=== PATIENT | female | born 1985 | race American Indian/Alaskan Native ===

== ENCOUNTER 2017-10-04 07:11 | Emergency (ER) | payer SELFPAY ==
[2017-10-04 07:38] LABS: Basophils % (Auto) 0.2 % (0.0-1.8); Eosinophils % (Auto) 0.1 % (0.0-4.3); Hematocrit 37.9 % (30.3-42.9); Mean Corpuscular HGB Conc 34 % (30-34); Mean Corpuscular Hemoglobin 30 pg (28-32); Mean Corpuscular Volume 88 fl (79-97); Platelet Count 350 K/mm3 (140-440); Red Blood Count 4.31 M/mm3 (3.65-5.03); White Blood Count 9.1 K/mm3 (4.5-11.0)
[2017-10-04 07:53] LABS: Alanine Aminotransferase 16 units/L (7-56); Albumin 4.7 g/dL (3.9-5); Albumin/Globulin Ratio 1.4 %; Alkaline Phosphatase 43 units/L (35-129); BUN/Creatinine Ratio 21; Blood Urea Nitrogen 15 mg/dL (7-17); Calcium 9.2 mg/dL (8.4-10.2); Carbon Dioxide 25 mmol/L (22-30); Glucose 85 mg/dL (65-100); Lipase 34 units/L (13-60)
[2017-10-04 07:54] LABS: Anion Gap 18 mmol/L; Chloride 99.5 mmol/L (98-107); Potassium 3.7 mmol/L (3.6-5.0); Sodium 139 mmol/L (137-145)
--- NOTE | 2017-10-04 08:55 | Emergency Department Report ---
ED Abdominal Pain HPI - General Chief Complaint: Abdominal Pain Stated Complaint: ABDOMINAL PAIN, HEADACHE Time Seen by Provider: 10/04/17 08:53 Source: patient Mode of arrival: Ambulatory Limitations: No Limitations - History of Present Illness Initial Comments: Patient has a variety of chronic complaints including intermittent headache and intermittent lower abdominal pain. She's had headaches for years. They have been previously diagnosed as tension headaches. She states that she has had nausea and occasional lower abdominal cramping for one month. She has no family physician in this area as she recently moved here. Therefore, she decided to go to the emergency department for further evaluation. She does not report any acute active symptoms at this time. MD Complaint: abdominal pain Location: LLQ, RLQ (occasional lower cramping) Migration to: no migration Severity: mild Severity scale (0 -10): 0 Quality: cramping Consistency: intermittent Improves With: nothing Worsens With: nothing Associated Symptoms: nausea (states regular menses), other (enhancement headaches) - Related Data Home Medications Medication Instructions Recorded Confirmed Last Taken Aspirin/Acetaminophen/Caffeine 1 tab PO QDAY PRN 10/04/17 10/04/17 Unknown [Excedrin Migraine Caplet] Mucinex Fast-Max Day-Nite Cold 1 tab PO QDAY PRN 10/04/17 10/04/17 Unknown Previous Rx's Medication Instructions Recorded Last Taken Type Nitrofurantoin Monohyd/M-Cryst 100 mg PO BID #7 capsule 10/04/17 Unknown Rx [Macrobid 100 mg Capsule] Ondansetron [Zofran Odt] 4 mg PO Q8HR PRN #7 tab.rapdis 10/04/17 Unknown Rx traMADol [Ultram] 50 mg PO Q6HR PRN #7 tablet 10/04/17 Unknown Rx Allergies Allergy/AdvReac Type Severity Reaction Status Date / Time Penicillins Allergy Rash Verified 10/04/17 07:16 ED Review of Systems ROS: Stated complaint: ABDOMINAL PAIN, HEADACHE Other details as noted in HPI Constitutional: denies: chills, fever Eyes: denies: eye pain, eye discharge, vision change ENT: denies: ear pain, throat pain Respiratory: denies: cough, shortness of breath, wheezing Cardiovascular: denies: chest pain, palpitations Endocrine: no symptoms reported Gastrointestinal: nausea. denies: abdominal pain (not currently but occasional cramping), diarrhea Genitourinary: denies: urgency, dysuria, discharge Musculoskeletal: denies: back pain, joint swelling, arthralgia Skin: denies: rash, lesions Neurological: headache (not at this time but intermittently). denies: weakness , paresthesias Psychiatric: denies: anxiety, depression Hematological/Lymphatic: denies: easy bleeding, easy bruising ED Past Medical Hx - Past Medical History Previous Medical History?: Yes Additional medical history: tension RODRIGUEZ - Surgical History Past Surgical History?: Yes Additional Surgical History: D&C - Social History Smoking Status: Never Smoker Substance Use Type: Alcohol - Medications Home Medications: Home Medications Medication Instructions Recorded Confirmed Last Taken Type Aspirin/Acetaminophen/Caffeine 1 tab PO QDAY PRN 10/04/17 10/04/17 Unknown History [Excedrin Migraine Caplet] Mucinex Fast-Max Day-Nite Cold 1 tab PO QDAY PRN 10/04/17 10/04/17 Unknown History Nitrofurantoin Monohyd/M-Cryst 100 mg PO BID #7 capsule 10/04/17 Unknown Rx [Macrobid 100 mg Capsule] Ondansetron [Zofran Odt] 4 mg PO Q8HR PRN #7 tab.rapdis 10/04/17 Unknown Rx traMADol [Ultram] 50 mg PO Q6HR PRN #7 tablet 10/04/17 Unknown Rx ED Physical Exam - General Limitations: No Limitations General appearance: alert, in no apparent distress - Head Head exam: Present: atraumatic, normocephalic - Eye Eye exam: Present: normal appearance. Absent: scleral icterus - ENT ENT exam: Present: mucous membranes moist - Neck Neck exam: Present: normal inspection - Respiratory Respiratory exam: Present: normal lung sounds bilaterally. Absent: respiratory distress - Cardiovascular Cardiovascular Exam: Present: regular rate, normal rhythm. Absent: systolic murmur, diastolic murmur, rubs, gallop - GI/Abdominal GI/Abdominal exam: Present: soft, normal bowel sounds. Absent: distended, tenderness, guarding, rebound, rigid - Extremities Exam Extremities exam: Present: normal inspection - Back Exam Back exam: Present: normal inspection - Neurological Exam Neurological exam: Present: alert, oriented X3, CN II-XII intact. Absent: motor sensory deficit - Psychiatric Psychiatric exam: Present: normal affect, normal mood - Skin Skin exam: Present: warm, dry, intact, other (large keloid anterior sternal area ). Absent: rash ED Course Vital Signs 10/04/17 10/04/17 10/04/17 07:16 07:30 09:15 Temperature 98.4 F 98.5 F Pulse Rate 104 H 96 H 95 H Respiratory 18 14 14 Rate Blood Pressure 105/77 Blood Pressure 127/85 134/86 [Right] O2 Sat by Pulse 99 100 Oximetry ED Medical Decision Making - Lab Data Result diagrams: 10/04/17 07:22 10/04/17 07:22 Laboratory Results - last 24 hr 10/04/17 10/04/17 10/04/17 07:22 07:22 07:22 WBC 9.1 RBC 4.31 Hgb 13.0 Hct 37.9 MCV 88 MCH 30 MCHC 34 RDW 13.0 L Plt Count 350 Lymph % (Auto) 20.2 [place] % (Auto) 6.3 Eos % (Auto) 0.1 Baso % (Auto) 0.2 Lymph # 1.8 [place] # 0.6 Eos # 0.0 Baso # 0.0 Seg Neutrophils % 73.2 H Seg Neutrophils # 6.7 Sodium 139 Potassium 3.7 Chloride 99.5 Carbon Dioxide 25 Anion Gap 18 BUN 15 Creatinine 0.7 Estimated GFR > 60 BUN/Creatinine Ratio 21 Glucose 85 Calcium 9.2 Total Bilirubin 0.70 AST 24 ALT 16 Alkaline Phosphatase 43 Total Protein 8.0 Albumin 4.7 Albumin/Globulin Ratio 1.4 Lipase 34 HCG, Qual Negative Laboratory Results - last 24 hr 10/04/17 10/04/17 10/04/17 07:22 07:22 07:22 WBC 9.1 RBC 4.31 Hgb 13.0 Hct 37.9 MCV 88 MCH 30 MCHC 34 RDW 13.0 L Plt Count 350 Lymph % (Auto) 20.2 [place] % (Auto) 6.3 Eos % (Auto) 0.1 Baso % (Auto) 0.2 Lymph # 1.8 [place] # 0.6 Eos # 0.0 Baso # 0.0 Seg Neutrophils % 73.2 H Seg Neutrophils # 6.7 Sodium 139 Potassium 3.7 Chloride 99.5 Carbon Dioxide 25 Anion Gap 18 BUN 15 Creatinine 0.7 Estimated GFR > 60 BUN/Creatinine Ratio 21 Glucose 85 Calcium 9.2 Total Bilirubin 0.70 AST 24 ALT 16 Alkaline Phosphatase 43 Total Protein 8.0 Albumin 4.7 Albumin/Globulin Ratio 1.4 Lipase 34 HCG, Qual Negative Urine Color Urine Turbidity Urine pH Ur Specific [place] Urine Protein Urine Glucose (UA) Urine Ketones Urine Blood Urine Nitrite Urine Bilirubin Urine Urobilinogen Ur Leukocyte Esterase Urine WBC (Auto) Urine RBC (Auto) U Epithel Cells (Auto) Urine Mucus 10/04/17 10:26 WBC RBC Hgb Hct MCV MCH MCHC RDW Plt Count Lymph % (Auto) [place] % (Auto) Eos % (Auto) Baso % (Auto) Lymph # [place] # Eos # Baso # Seg Neutrophils % Seg Neutrophils # Sodium Potassium Chloride Carbon Dioxide Anion Gap BUN Creatinine Estimated GFR BUN/Creatinine Ratio Glucose Calcium Total Bilirubin AST ALT Alkaline Phosphatase Total Protein Albumin Albumin/Globulin Ratio Lipase HCG, Qual Urine Color Yellow Urine Turbidity Clear Urine pH 5.0 Ur Specific [place] 1.024 Urine Protein 30 mg/dl Urine Glucose (UA) Neg Urine Ketones 80 Urine Blood Neg Urine Nitrite Neg Urine Bilirubin Neg Urine Urobilinogen < 2.0 Ur Leukocyte Esterase Neg Urine WBC (Auto) 2.0 Urine RBC (Auto) 3.0 U Epithel Cells (Auto) < 1.0 Urine Mucus 3+ Critical care attestation.: If time is entered above; I have spent that time in minutes in the direct care of this critically ill patient, excluding procedure time. ED Disposition Clinical Impression: Nausea UTI (urinary tract infection) Qualifiers: Urinary tract infection type: site unspecified Hematuria presence: without hematuria Qualified Code(s): N39.0 - Urinary tract infection, site not specified Headache Qualifiers: Headache type: unspecified Headache chronicity pattern: chronic headache Intractability: not intractable Qualified Code(s): R51 - Headache Disposition: - TO HOME OR SELFCARE Is pt being admited?: No Does the pt Need Aspirin: No Condition: Stable Instructions: Abdominal Pain (ED), Acute Headache (ED), Urinary Tract Infection in Women (ED) Additional Instructions: Follow-up with her primary care provider. Rx as directed. Follow up on your urine culture by Sunday. Return any acute change or problems. Prescriptions: Nitrofurantoin Monohyd/M-Cryst [Macrobid 100 mg Capsule] 100 mg PO BID #7 capsule Ondansetron [Zofran Odt] 4 mg PO Q8HR PRN #7 tab.rapdis PRN Reason: Nausea traMADol [Ultram] 50 mg PO Q6HR PRN #7 tablet PRN Reason: Pain Referrals: PRIMARY CARE, [Primary Care Provider] - 3-5 Days [facility] [Provider Group] - 3-5 Days Time of Disposition: 10:52
[2017-10-04 10:33] VITALS: BP 134/86
[2017-10-04 10:40] LABS: Bilirubin,Urine NEG (Negative); Blood,Urine NEG (Negative); Ketones,Urine 80 mg/dL (Negative); Leukocyte Esterase,Urine NEG (Negative); Mucus,Urine 3+ /HPF; Nitrite,Urine NEG (Negative); Urobilinogen,Urine < 2.0 mg/dL (<2.0)
== END 2017-10-04 11:14 | disposition home or self-care (01) ==
LOC: ED 07:11
DX: N39.0 Urinary tract infection, site not specified (principal); R51 Headache; Z88.0 Allergy status to penicillin; Z79.82 Long term (current) use of aspirin
CPT/HCPCS: 36415; 80053; 81001; 83690; 84703; 85025; 87086; 99283

== ENCOUNTER 2019-02-01 07:54 | Emergency (ER) | payer SELFPAY ==
[2019-02-01 08:09] VITALS: BP 99/70
--- NOTE | 2019-02-01 09:46 | Emergency Department Report ---
- General Chief Complaint: Upper Respiratory Infection Stated Complaint: COUGH/COLD SYMPTOMS Time Seen by Provider: 02/01/19 09:34 Source: patient Mode of arrival: Ambulatory Limitations: No Limitations - History of Present Illness Initial Comments: 33-year-old female presents to the hospital and cold symptoms 2 weeks. Patient is not that the cough, runny nose, sore throat, and hoarseness. Using [id number] medicine without relief. She denies fever, sick contacts, recent travel, she did not receive a flu shot. She denies dizziness, lightheadedness, or shortness of breath. Pain to chest is mild to moderate and reported only with coughing. She does have a primary care doctor - Related Data Home Medications Medication Instructions Recorded Confirmed Last Taken Aspirin/Acetaminophen/Caffeine 1 tab PO QDAY PRN 10/04/17 10/04/17 Unknown [Excedrin Migraine Caplet] Mucinex Fast-Max Day-Nite Cold 1 tab PO QDAY PRN 10/04/17 10/04/17 Unknown Previous Rx's Medication Instructions Recorded Last Taken Type Nitrofurantoin Monohyd/M-Cryst 100 mg PO BID #7 capsule 10/04/17 Unknown Rx [Macrobid 100 mg Capsule] Ondansetron [Zofran Odt] 4 mg PO Q8HR PRN #7 tab.rapdis 10/04/17 Unknown Rx traMADol [Ultram] 50 mg PO Q6HR PRN #7 tablet 10/04/17 Unknown Rx Azithromycin [Zithromax Z-LUZ] 1 dose PO DAILY 5 Days tab 02/01/19 Unknown Rx Benzonatate [Tessalon Perles] 100 mg PO Q8HR PRN #30 capsule 02/01/19 Unknown Rx Allergies Allergy/AdvReac Type Severity Reaction Status Date / Time Penicillins Allergy Rash Verified 10/04/17 07:16 ED Review of Systems ROS: Stated complaint: COUGH/COLD SYMPTOMS Other details as noted in HPI Comment: All other systems reviewed and negative ED Past Medical Hx - Past Medical History Previous Medical History?: No Additional medical history: tension RODRIGUEZ - Surgical History Past Surgical History?: Yes Additional Surgical History: D&C - Social History Smoking Status: Never Smoker Substance Use Type: None - Medications Home Medications: Home Medications Medication Instructions Recorded Confirmed Last Taken Type Aspirin/Acetaminophen/Caffeine 1 tab PO QDAY PRN 10/04/17 10/04/17 Unknown History [Excedrin Migraine Caplet] Mucinex Fast-Max Day-Nite Cold 1 tab PO QDAY PRN 10/04/17 10/04/17 Unknown History Nitrofurantoin Monohyd/M-Cryst 100 mg PO BID #7 capsule 10/04/17 Unknown Rx [Macrobid 100 mg Capsule] Ondansetron [Zofran Odt] 4 mg PO Q8HR PRN #7 tab.rapdis 10/04/17 Unknown Rx traMADol [Ultram] 50 mg PO Q6HR PRN #7 tablet 10/04/17 Unknown Rx Azithromycin [Zithromax Z-LUZ] 1 dose PO DAILY 5 Days tab 02/01/19 Unknown Rx Benzonatate [Tessalon Perles] 100 mg PO Q8HR PRN #30 capsule 02/01/19 Unknown Rx ED Physical Exam - General Limitations: No Limitations - Other Other exam information: General: No limitations, patient is alert in no acute distress Head exam: Atraumatic, normocephalic Eyes exam: Mild right eye conjunctiva erythema without purulence draining, pupils equal reactive to light, extraocular movements intact ENT: Moist mucous membrane, normal oropharynx, no posterior pharyngeal exudates. Nontender cervical lymph nodes without significant lymphadenopathy Neck exam: Normal inspection, full range of motion, no meningismus nontender Respiratory exam: Clear to auscultation bilateral, no wheezes, rales, crackles Cardiovascular: Normal rate and rhythm without tachycardia on exam Abdomen: Soft, nondistended, and nontender, with normal bowel sounds, no rebound, or guarding Extremity: Full range of motion normal inspection no deformity Back: Normal Inspection, full range of motion, no tenderness Neurologic: Alert, oriented x3, cranial nerves intact, no motor or sensory deficit Psychiatric: normal affect, normal mood Skin: Warm, dry, intact ED Course Vital Signs 02/01/19 08:03 Temperature 98.5 F Pulse Rate 104 H Respiratory 18 Rate Blood Pressure 99/70 O2 Sat by Pulse 98 Oximetry ED Medical Decision Making - Medical Decision Making Since of this ongoing 2 weeks patient will be placed on a Z-Luz for respiratory/sinus infection. Continue OTC meds for symptoms. PMD follow-up - Differential Diagnosis viral syndrome, bronchitis, pneumonia, sinusitis, laryngitis, pharyngitis Critical Care Time: No Critical care attestation.: If time is entered above; I have spent that time in minutes in the direct care of this critically ill patient, excluding procedure time. ED Disposition Clinical Impression: Viral syndrome, Laryngitis, Bronchitis, acute Disposition: - TO HOME OR SELFCARE Is pt being admited?: No Does the pt Need Aspirin: No Condition: Stable Instructions: Acute Bronchitis (ED), Laryngitis (ED), Viral Syndrome (ED) Additional Instructions: Take the medication as prescribed. Follow up with your doctor or the clinic/doctor provided. Return if symptoms worsen as indicated by your discharge instructions Prescriptions: Benzonatate [Tessalon Perles] 100 mg PO Q8HR PRN #30 capsule PRN Reason: Cough Azithromycin [Zithromax Z-LUZ] 1 dose PO DAILY 5 Days tab Referrals: CAMMIE SAMUEL MD [Primary Care Provider] - 3-5 Days Time of Disposition: 09:45
== END 2019-02-01 10:04 | disposition home or self-care (01) ==
LOC: ED 07:54
DX: J20.9 Acute bronchitis, unspecified (principal); J04.0 Acute laryngitis; B34.9 Viral infection, unspecified; Z88.0 Allergy status to penicillin
CPT/HCPCS: 99281

== ENCOUNTER 2020-01-20 08:26 | Emergency (ER) | payer SELFPAY ==
[2020-01-20 08:41] VITALS: BP 111/74
[2020-01-20 10:44] LABS: Bacteria,Urine 1+ /HPF (Negative); Bilirubin,Urine NEG (Negative); Blood,Urine SM (Negative); Color,Urine Straw (Yellow); Hyaline Casts,Urine 1 /LPF; Protein,Urine <15 mg/dL mg/dL (Negative); Urobilinogen,Urine < 2.0 mg/dL (<2.0)
[2020-01-20 11:13] LABS: Eosinophils % (Auto) 1.1 % (0.0-4.3); Hematocrit 39.9 % (30.3-42.9); Hemoglobin 13.5 gm/dl (10.1-14.3); Lymphocytes # (Auto) 1.4 K/mm3 (1.2-5.4); Lymphocytes % (Auto) 34.8 % (13.4-35.0); Mean Corpuscular HGB Conc 34 % (30-34); Mean Corpuscular Volume 86 fl (79-97); Monocytes # (Auto) 0.3 K/mm3 (0.0-0.8); Monocytes % (Auto) 8.1 % (0.0-7.3); Platelet Count 298 K/mm3 (140-440); Red Blood Count 4.66 M/mm3 (3.65-5.03); Red Cell Distribution Width 13.3 % (13.2-15.2)
[2020-01-20 11:33] LABS: Alanine Aminotransferase 10 units/L (7-56); Albumin 4.8 g/dL (3.9-5); BUN/Creatinine Ratio 18; Blood Urea Nitrogen 9 mg/dL (7-17); Calcium 9.5 mg/dL (8.4-10.2); Hemolysis Index 8
[2020-01-20] MEDS ORDERED: IBUPROFEN 800 MG TAB PO ONE (11:38)
--- NOTE | 2020-01-20 13:01 | Ultrasound Report ---
TRANSABDOMINAL PELVIC AND TRANSVAGINAL ULTRASOUND HISTORY: pelvic pain COMPARISON: None. TECHNIQUE: Routine transabdominal and transvaginal pelvic ultrasound performed. FINDINGS: TRANSABDOMINAL PELVIC ULTRASOUND: Uterus: Normal size and echogenicity without uterine mass. The uterus is retroflexed. Endometrium: Normal in thickness. Right Ovary: Enlarged with a complex cyst measuring 4.3 x 3.7 x 3.6 cm. The ovary measures 4.8 x 4.7 x 3.9 cm. Left Ovary: Not seen. Additional findings: Transvaginal exam was performed for better delineation of the endometrium and ov alysha. TRANSVAGINAL PELVIC ULTRASOUND: Uterus: Normal size and echogenicity. No masses. Uterus measures 7.7 x 4.2 x 5.0 cm. Endometrium: Normal thickness measuring 7 mm. Right Ovary: Enlarged with a septated cyst measuring 4.4 x 4.1 x 3.9 cm. The ovary measures 4.3 x 4 .6 x 4.7 cm. Left Ovary: Normal size, blood flow and appearance measuring 2.1 x 2.4 x 2.9 cm. Additional findings: No adnexal mass or free fluid. IMPRESSION: 1. A 4.4 cm hemorrhagic cyst of the right ovary. 2. Normal uterus and left ovary. Signer Name: Chetan Yung MD Signed: 01/20/2020 12:56 PM Workstation Name: [id number]
--- NOTE | 2020-01-20 13:38 | Emergency Department Report ---
ED Abdominal Pain HPI - General Chief Complaint: Abdominal Pain Stated Complaint: ABD/HEADACHE/NAUSEA/BREAST PAIN Time Seen by Provider: 01/20/20 09:57 Source: patient Mode of arrival: Ambulatory Limitations: No Limitations - History of Present Illness Initial Comments: This is a 34-year-old female nontoxic, well nourished in appearance, no acute signs of distress presents to the ED with c/o of intermittent nausea and left side pelvic pain 1-2 months. Patient denies any vomiting. Patient describes pelvic pain as cramping and aching with level of 3/10 diffuse. Patient denies chest pain, short of breath, fever, chills, headache, stiff neck, numbness or tingling. Patient denies any urinary symptoms, vaginal discharge, or vaginal bleeding. Patient denies any diarrhea or constipation. Patient denies any recent travels. Patient stated allergies to PCN. MD Complaint: abdominal pain -: month(s) Location: LLQ Radiation: none Migration to: no migration Severity: mild Severity scale (0 -10): 3 Quality: cramping, aching Consistency: intermittent Improves With: nothing Worsens With: nothing Associated Symptoms: nausea. denies: vomiting, diarrhea, fever, chills, constipation, dysuria, hematemesis, hematochezia, melena, hematuria, anorexia, syncope - Related Data Home Medications Medication Instructions Recorded Confirmed Last Taken Aspirin/Acetaminophen/Caffeine 1 tab PO QDAY PRN 10/04/17 10/04/17 Unknown [Excedrin Migraine Caplet] Mucinex Fast-Max Day-Nite Cold 1 tab PO QDAY PRN 10/04/17 10/04/17 Unknown Previous Rx's Medication Instructions Recorded Last Taken Type Nitrofurantoin Monohyd/M-Cryst 100 mg PO BID #7 capsule 10/04/17 Unknown Rx [Macrobid 100 mg Capsule] Ondansetron [Zofran Odt] 4 mg PO Q8HR PRN #7 tab.rapdis 10/04/17 Unknown Rx traMADoL [Ultram] 50 mg PO Q6HR PRN #7 tablet 10/04/17 Unknown Rx Azithromycin [Zithromax Z-LUZ] 1 dose PO DAILY 5 Days tab 02/01/19 Unknown Rx Benzonatate [Tessalon Perles] 100 mg PO Q8HR PRN #30 capsule 02/01/19 Unknown Rx Ibuprofen [Motrin] 600 mg PO Q8H PRN #20 tablet 01/20/20 Unknown Rx Allergies Allergy/AdvReac Type Severity Reaction Status Date / Time Penicillins Allergy Rash Verified 10/04/17 07:16 ED Review of Systems ROS: Stated complaint: ABD/HEADACHE/NAUSEA/BREAST PAIN Other details as noted in HPI Constitutional: denies: chills, fever Eyes: denies: eye pain, eye discharge, vision change ENT: denies: ear pain, throat pain Respiratory: denies: cough, shortness of breath, wheezing Cardiovascular: denies: chest pain, palpitations Endocrine: no symptoms reported Gastrointestinal: denies: abdominal pain, nausea, diarrhea Genitourinary: denies: urgency, dysuria, discharge Musculoskeletal: denies: back pain, joint swelling, arthralgia Skin: denies: rash, lesions Neurological: denies: headache, weakness, paresthesias Psychiatric: denies: anxiety, depression Hematological/Lymphatic: denies: easy bleeding, easy bruising ED Past Medical Hx - Past Medical History Previous Medical History?: Yes Additional medical history: tension RODRIGUEZ - Surgical History Past Surgical History?: Yes Additional Surgical History: D&C - Social History Smoking Status: Never Smoker Substance Use Type: None - Medications Home Medications: Home Medications Medication Instructions Recorded Confirmed Last Taken Type Aspirin/Acetaminophen/Caffeine 1 tab PO QDAY PRN 10/04/17 10/04/17 Unknown History [Excedrin Migraine Caplet] Mucinex Fast-Max Day-Nite Cold 1 tab PO QDAY PRN 10/04/17 10/04/17 Unknown History Nitrofurantoin Monohyd/M-Cryst 100 mg PO BID #7 capsule 10/04/17 Unknown Rx [Macrobid 100 mg Capsule] Ondansetron [Zofran Odt] 4 mg PO Q8HR PRN #7 tab.rapdis 10/04/17 Unknown Rx traMADoL [Ultram] 50 mg PO Q6HR PRN #7 tablet 10/04/17 Unknown Rx Azithromycin [Zithromax Z-LUZ] 1 dose PO DAILY 5 Days tab 02/01/19 Unknown Rx Benzonatate [Tessalon Perles] 100 mg PO Q8HR PRN #30 capsule 02/01/19 Unknown Rx Ibuprofen [Motrin] 600 mg PO Q8H PRN #20 tablet 01/20/20 Unknown Rx ED Physical Exam - General Limitations: No Limitations General appearance: alert, in no apparent distress - Head Head exam: Present: atraumatic, normocephalic - Neck Neck exam: Present: normal inspection, full ROM. Absent: tenderness, meningismus, lymphadenopathy - GI/Abdominal GI/Abdominal exam: Present: soft, normal bowel sounds. Absent: distended, tenderness, guarding, rebound, rigid, diminished bowel sounds - Extremities Exam Extremities exam: Present: normal inspection, full ROM - Back Exam Back exam: Present: normal inspection, full ROM. Absent: tenderness, CVA tenderness (R), CVA tenderness (L), muscle spasm, paraspinal tenderness, vertebral tenderness, rash noted - Neurological Exam Neurological exam: Present: alert, oriented X3, normal gait - Psychiatric Psychiatric exam: Present: normal affect, normal mood - Skin Skin exam: Present: warm, dry, intact, normal color. Absent: rash ED Course Vital Signs 01/20/20 08:41 Temperature 97.7 F Pulse Rate 94 H Respiratory 16 Rate Blood Pressure 111/74 [Right] O2 Sat by Pulse 98 Oximetry - Reevaluation(s) Reevaluation #1: 01/20/20 13:36 Patient is speaking in full sentences with no signs of distress noted. ED Medical Decision Making - Lab Data Result diagrams: 01/20/20 10:41 01/20/20 10:41 - Medical Decision Making This is a 34-year-old female that presents with abdominal pain. Patient is stable and was examined by me. There is no abdominal tenderness. Negative signs of symptoms of appendicitis. Labs obtained. UA obtained. Doppler pelvic US obtained and dictated by the radiologist. Patient is notified of the report with no questions noted by the patient. Vital signs are stable prior to discharge. Patient received medical treatment in the ED which patient stated symptoms has resovled and subsided. Patient was also instructed to Follow-up with a primary care/OBGYN doctor in 3-5 days or if symptoms worsen and continue return to emergency room as soon as possible. At time of discharge, the patient does not seem toxic or ill in appearance. No acute signs of distress noted. Patient agrees to discharge treatment plan of care. No further questions noted by the patient. Critical care attestation.: If time is entered above; I have spent that time in minutes in the direct care of this critically ill patient, excluding procedure time. ED Disposition Clinical Impression: Ovarian cyst Disposition: DC-01 TO HOME OR SELFCARE Is pt being admited?: No Does the pt Need Aspirin: No Condition: Stable Instructions: Ovarian Cyst (ED) Additional Instructions: Follow-up with a primary care/OBGYN doctor in 3-5 days or if symptoms worsen and continue return to emergency room as soon as possible. Prescriptions: Ibuprofen [Motrin] 600 mg PO Q8H PRN #20 tablet PRN Reason: Pain Referrals: PRIMARY MD JOHN [Primary Care Provider] - 3-5 Days JOSE CARLOS HAYES MD [Staff Physician] - 3-5 Days [facility] [Outside] - 3-5 Days LEYLA PERALTA MD [Staff Physician] - 3-5 Days Forms: Work/School Release Form(ED)
== END 2020-01-20 13:47 | disposition home or self-care (01) ==
LOC: ED 08:26
DX: N83.299 Other ovarian cyst, unspecified side (principal); Z88.0 Allergy status to penicillin
CPT/HCPCS: 36415; 76830; 80053; 81001; 83690; 84703; 85025; 87086; 93975